=== PATIENT | male | born 1945 | race Caucasian/White ===

== ENCOUNTER 2022-12-31 19:00 | Outpatient (CLI) | payer MEDICARE | END 2022-12-31 19:01 | disposition home or self-care (01) | LOC: SLEEPLAB 19:00 | PROVIDERS: ATTEND Family Medicine | DX: G47.33 Obstructive sleep apnea (adult) (pediatric) (principal); G25.89 Other specified extrapyramidal and movement disorders; R09.02 Hypoxemia | CPT/HCPCS: 95810 ==